=== PATIENT | female | born 1975 | race Caucasian/White ===

== ENCOUNTER 2016-10-10 08:33 | Emergency (ER) | payer MEDICAID ==
[~2016-10-10] VITALS: Ht 177.8 cm; Wt 148.0 kg
[2016-10-10 08:37] VITALS: BP 160/98; PULSE 85; RESP 16; TEMP 97.7; O2SAT 98
[2016-10-10 08:56] LABS: GLUCOSE,URINE NEG (NEG); KETONE, URINE NEG (NEG); NITRITE,URINE NEG (NEG)
[2016-10-10] MEDS ORDERED: SODIUM CHLOR 0.9% 1000 ML INJ 1,000 ML IV SCH (08:58)
[2016-10-10] MEDS ORDERED: [UNRECOGNIZED DRUG - CODE] (08:59)
[2016-10-10] MEDS ORDERED: ZANA4CAP PO (08:59)
[2016-10-10 09:00] LABS: BLOOD, URINE MOD (NEG); METHOD OF COLLECTION CLEAN CATCH
[2016-10-10] MEDS ORDERED: ONDANSETRON HCL 4 MG/2 ML VIAL IVP ONE (09:00)
[2016-10-10] MEDS ORDERED: SODIUM CHLORIDE 0.9% FLUSH 10 ML FLUSH IV FLUSH PRN (09:00)
[2016-10-10] MEDS ORDERED: MORPHINE SULFATE 4 MG/ML INJ IV PUSH ONE (09:00)
[2016-10-10 09:01] LABS: MUCUS URINE FEW /lpf (OCC); URINE COLOR YELLOW (YELLW/STRAW); WBC, URINE 0-2 /hpf (0-5)
--- NOTE | 2016-10-10 09:04 | PD ---
HPI Chief Complaint: Abdominal Pain Time Seen by Provider: 08:43 Travel History International Travel<30 days: No Contact w/Intl Traveler<30days: No Traveled to known affect area: No History of Present Illness HPI Social 41-year-old woman who presents to the emergency department complaining of upper abdominal pain. 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 She has a large parastomal hernia. She's also had a bilateral tubal ligation, and in the past. Since that time she's had some intermittent abdominal pain. She's been hospitalized before for bowel obstruction. She states she hasn't had a bowel movement for the past several days. She normally takes Naz-Colace for her bowel movements but left her medicine at home. She's been having a little bit of mild epigastric pain. This morning she Center distorted Naz-Colace and magnesium citrate. Following this she started to have severe upper abdominal cramping. This is similar to when she's had her bowel obstruction in the past. States she's also had this pain in the past and not had an obstruction. No other complaints. History Past Medical History Narrative Medical Constipation Tetanus Vaccination: Unknown Influenza Vaccination: Yes Social History Alcohol Use: No Tobacco Use: No Allergies-Medications (Allergen,Severity, Reaction): Coded Allergies: Dilaudid (Verified Allergy, Severe, 10/10/16) Reported Meds & Prescriptions Reported Meds & Active Scripts Active Reported Zanaflex (Tizanidine HCl) 4 Mg Cap 4 Mg PO TID Sennacon (Sennosides) 8.6 Mg Tab Review of Systems Except as stated in HPI: all other systems reviewed are Neg Physical Exam Narrative GENERAL: Obese 41-year-old woman, no acute distress. SKIN: Focused skin assessment warm/dry. HEAD: Atraumatic. Normocephalic. CARDIOVASCULAR: Regular rate and rhythm. No murmur appreciated. RESPIRATORY: No accessory muscle use. Clear to auscultation. Breath sounds equal bilaterally. GASTROINTESTINAL: Pendulous obese abdomen. There is a colostomy in the left lower quadrant with large peristomal hernia. No significant tenderness. No obvious distention. There is a little bit of firm stool in the ostomy bag. MUSCULOSKELETAL: No obvious deformities. No clubbing. No cyanosis. No edema. NEUROLOGICAL: Awake and alert. No obvious cranial nerve deficits. Motor grossly within normal limits. Normal speech. PSYCHIATRIC: Appropriate mood and affect; insight and judgment normal. Data Data Last Documented VS Vital Signs Date Time Temp Pulse Resp B/P Pulse Ox O2 Delivery O2 Flow Rate FiO2 10/10/16 08:51 16 10/10/16 08:37 97.7 85 160/98 98 Orders Urinalysis - C+S If Indicated (10/10/16 08:40) Ed Urine Pregnancytest Poc (10/10/16 08:40) Complete Blood Count With Diff (10/10/16 08:58) Comprehensive Metabolic Panel (10/10/16 08:58) Lipase (10/10/16 08:58) Iv Access Insert/Monitor (10/10/16 08:58) Ondansetron Inj (Zofran Inj) (10/10/16 09:00) Sodium Chlor 0.9% 1000 Ml Inj (Ns 1000 M (10/10/16 08:58) Sodium Chloride 0.9% Flush (Ns Flush) (10/10/16 09:00) Morphine Inj (Morphine Inj) (10/10/16 09:00) Ct Abd/Pel W Iv Contrast(Rout) (10/10/16 ) Iohexol 350 Inj (Omnipaque 350 Inj) (10/10/16 10:04) Labs Laboratory Tests Test 10/10/16 10/10/16 08:48 09:13 Urine Collection Type CLEAN CATCH Urine Color YELLOW Urine Turbidity CLEAR Urine pH 6.0 Urine Specific [place] 1.030 Urine Protein 30 mg/dL Urine Glucose (UA) NEG mg/dL Urine Ketones NEG mg/dL Urine Occult Blood MOD Urine Nitrite NEG Urine Bilirubin NEG Urine Leukocyte Esterase NEG Urine RBC 10-14 /hpf Urine WBC 0-2 /hpf Urine Squamous Epithelial 6-8 /hpf Cells Urine Mucus FEW /lpf Microscopic Urinalysis Comment CULT NOT INDICATED Urine Collection Time 08:48 White Blood Count 8.8 TH/MM3 Red Blood Count 4.56 MIL/MM3 Hemoglobin 13.9 GM/DL Hematocrit 40.7 % Mean Corpuscular Volume 89.3 FL Mean Corpuscular Hemoglobin 30.5 PG Mean Corpuscular Hemoglobin 34.2 % Concent Red Cell Distribution Width 11.7 % Platelet Count 197 TH/MM3 Mean Platelet Volume 9.0 FL Neutrophils (%) (Auto) 48.2 % Lymphocytes (%) (Auto) 44.3 % Monocytes (%) (Auto) 5.6 % Eosinophils (%) (Auto) 0.1 % Basophils (%) (Auto) 1.8 % Neutrophils # (Auto) 4.2 TH/MM3 Lymphocytes # (Auto) 3.9 TH/MM3 Monocytes # (Auto) 0.5 TH/MM3 Eosinophils # (Auto) 0.0 TH/MM3 Basophils # (Auto) 0.2 TH/MM3 CBC Comment DIFF FINAL Differential Comment Sodium Level 143 MEQ/L Potassium Level 3.4 MEQ/L Chloride Level 102 MEQ/L Carbon Dioxide Level 26.5 MEQ/L Anion Gap 15 MEQ/L Blood Urea Nitrogen 17 MG/DL Creatinine 0.90 MG/DL Estimat Glomerular Filtration 68 ML/MIN Rate Random Glucose 78 MG/DL Calcium Level 8.4 MG/DL Total Bilirubin 0.4 MG/DL Aspartate Amino Transf 30 U/L (AST/SGOT) Alanine Aminotransferase 55 U/L (ALT/SGPT) Alkaline Phosphatase 62 U/L Total Protein 7.4 GM/DL Albumin 3.2 GM/DL Lipase 89 U/L [facility] Medical Decision Making Medical Screen Exam Complete: Yes Emergency Medical Condition: Yes Interpretation(s) LABS: CBC unremarkable. CMP unremarkable. Lipase normal. UA was some hematuria CT abdomen and pelvis: Large hernia at the colostomy site in the left lower quadrant. No inflammatory changes. Mild hepatic steatosis. Differential Diagnosis Obstruction, constipation, perforation, weakness, other Narrative Course Medical decision making INITIAL: Is a 38-year-old woman who presents to the emergency department complaining of abdominal pain, history of bowel perforation obstruction. Looks well. She's had some constipation recently. We'll check labs, CT imaging, likely discharge for outpatient follow-up. Procedures Procedure Narrative Ultrasound-guided peripheral IV: Nursing staff unable to establish IV access. Using real-time ultrasound, 20- gauge Angiocath was placed in the right forearm. Patient tolerated well. Diagnosis Primary Impression: Abdominal pain Additional Instructions: Continue Naz-Colace. Follow up with her primary doctor when he returns home. Return to the emergency department for any new or worsening symptoms. Disposition: 01 DISCHARGE HOME Condition: Stable Bowen Lao MD Oct 10, 2016 09:04
[2016-10-10 09:29] LABS: AUTOMATED NEUTROPHIL # 4.2 TH/MM3 (1.8-7.7); BASOPHIL # 0.2 TH/MM3 (0-0.2); BASOPHIL % 1.8 % (0.0-2.0); EOSINOPHIL % 0.1 % (0.0-4.0); HEMATOCRIT 40.7 % (35.0-46.0); HEMO FLAGS DIFF FINAL; LYMPH % 44.3 % (9.0-44.0); LYMPHOCYTE # 3.9 TH/MM3 (1.0-4.8); MEAN CELL VOLUME 89.3 FL (80.0-100.0); MEAN CORPUSCULAR HEMOGLOBIN 30.5 PG (27.0-34.0); MEAN CORPUSCULAR HGB CONC 34.2 % (32.0-36.0); MONO % 5.6 % (0.0-8.0); NEUT % 48.2 % (16.0-70.0); PLATELET COUNT 197 TH/MM3 (150-450); RED BLOOD COUNT 4.56 MIL/MM3 (4.00-5.30); RED CELL DISTRIBUTION WIDTH 11.7 % (11.6-17.2); WHITE BLOOD COUNT 8.8 TH/MM3 (4.0-11.0)
[2016-10-10 09:57] LABS: BLOOD UREA NITROGEN 17 MG/DL (7-18); GLOMERULAR FILTRATION RATE 68 ML/MIN (>89); SODIUM (NA) 143 MEQ/L (136-145)
[2016-10-10 09:58] LABS: CHLORIDE 102 MEQ/L (98-107); POTASSIUM 3.4 MEQ/L (3.5-5.1)
[2016-10-10] MEDS ORDERED: IOHEXOL 350 MG/ML 10 ML VIAL (for RAD DIAG) IV ONE (10:04)
--- NOTE | 2016-10-10 10:08 | RADHPO ---
EXAM DATE/TIME: 10/10/2016 09:39 [place] COMPARISON: No previous studies available for comparison. INDICATIONS : Upper abdominal pain today. Constipation x 4 days. IV CONTRAST: 91 cc Omnipaque 350 (iohexol) IV ORAL CONTRAST: No oral contrast ingested. RADIATION DOSE: 26.81 CTDIvol (mGy) MEDICAL HISTORY : Abdomen perforation. Hernia. SURGICAL HISTORY : Tubal ligation. section.Cholecystectomy.Ileostomy. ENCOUNTER: Initial ACUITY: 4 - 6 days PAIN SCALE: 8/10 LOCATION: upper quadrant TECHNIQUE: Volumetric scanning of the abdomen and pelvis was performed. Using automated exposure control and ad justment of the mA and/or kV according to patient size, radiation dose was kept as low as reasonably achievable to obtain optimal diagnostic quality images. FINDINGS: Mild hepatic steatosis. Cholecystectomy clips are noted. In, stomach, pancreas, adrenal glands, kidne ys are unremarkable. Urinary bladder, uterus and ovaries are unremarkable. There is a staple line pre sent at the sigmoid colon and a left lower quadrant colostomy is noted. There is a large hernia defec t at the ostomy site with a transverse abdominal wall defect of 4.2 cm, and a hernia sac containing f at and large bowel measuring 17.3 x 11.0 cm in transverse and AP dimension. There is no evidence of o bstruction. No aneurysm or adenopathy. No inflammatory changes are seen. Osseous structures are intac t. Lung bases are clear. CONCLUSION: 1. Large hernia at the colostomy site in the left lower quadrant. 2. No inflammatory changes are seen. 3. Mild hepatic steatosis. Viet Petersen MD on October 10, 2016 at 10:04 Board Certified Radiologist. This report was verified electronically.
[2016-10-10 10:21] LABS: ALKALINE PHOSPHATASE 62 U/L (45-117); TOTAL BILIRUBIN ADULT 0.4 MG/DL (0.2-1.0)
[2016-10-10 10:32] LABS: ALT (GPT) 55 U/L (10-53); ANION GAP 15 MEQ/L (5-15); AST (GOT) 30 U/L (15-37); BICARBONATE 26.5 MEQ/L (21.0-32.0)
[2016-10-10 10:42] LABS: COMMENT (UR) CULT NOT INDICATED; CULTURE IF INDICATED CULT NOT INDICATED
== END 2016-10-10 10:53 | disposition home or self-care (01) ==
LOC: PHED 08:33
DX: K43.5 Parastomal hernia without obstruction or gangrene (principal); K59.00 Constipation, unspecified
CPT/HCPCS: 74177; 80053; 81001; 83690; 84703; 85025; 96361; 96374; 96375; 99284; J2270; J2405; J7030; Q9967